=== PATIENT | male | born 1945 | race Caucasian/White ===

== ENCOUNTER 2019-07-24 00:38 | Emergency (ER) | payer BC, MEDICARE ==
[~2019-07-24] VITALS: Ht 172.7 cm; Wt 71.7 kg
--- NOTE | 2019-07-24 00:44 | NUR ---
PT PRESENTED TO THE ER WITH A C/O MIDSTERNAL NON RADIATING CP 30 MINS ECONOMICS DEPARTMENT CHAIR. PT IS PALE, DIAPHORETIC, C/O LUE DISCOMFORT. RESP ARE EVEN AND UNLABORED. PT WAS TRIAGED IN ER 2 AND PLACED ON THE MONITOR AND CONTINUOUS PULSE OX. PT WAS PLACED ON 2L O2 VIA NC PRECAUTION. 18G IV STARTED ON LAC. BLOOD WAS DRAWN AND SENT TO LAB. DR MOORE WAS NOTIFIED AND IS AT THE BEDSIDE.
[2019-07-24 00:56] LABS: BASOPHILS # (AUTO) 0.1 /CMM (0.0-0.2); BASOPHILS % (AUTO) 1.3 % (0.0-2.0); EOSINOPHILS % (AUTO) 1.4 % (0.0-6.0); HEMATOCRIT 41 % (39-51); HEMOGLOBIN 13.8 g/dL (13.5-17.5); LYMPHOCYTES # (AUTO) 2.3 /CMM (0.8-4.8); LYMPHOCYTES % (AUTO) 35.8 % (20.0-44.0); MEAN CORPUSCULAR HGB CONC 34 g/dl (31.0-36.0); MEAN CORPUSCULAR VOLUME 96 fL (80-96); MONOCYTES # (AUTO) 0.7 /CMM (0.1-1.30); MONOCYTES % (AUTO) 11.4 % (2.0-12.0); NEUTROPHILS # (AUTO) 3.2 /CMM (1.8-8.9); NEUTROPHILS % (AUTO) 50.1 % (43.0-81.0); PLATELET COUNT (AUTO) 259 /CMM (150-450); RED BLOOD CELL COUNT(AUTO) 4.23 MIL/uL (4.5-6.0); WHITE BLOOD COUNT (AUTO) 6.4 K/uL (4.3-11.0)
[2019-07-24] MEDS ORDERED: ONDANSETRON HCL/PF 4 MG/2 ML VIAL ONE (00:57)
[2019-07-24] MEDS ORDERED: NITROGLYCERIN 0.4 MG/TAB BOTTLE ONE (00:58)
[2019-07-24] MEDS ORDERED: ASPIRIN 325 MG TABLET ONE (00:58)
--- NOTE | 2019-07-24 00:59 | NUR ---
[place] [facility] fax clinical info [phone] ATT: SOPHIE.
[2019-07-24] MEDS ORDERED: ASPIRIN 325 MG TABLET PO ONE (01:00)
[2019-07-24] MEDS ORDERED: NITROGLYCERIN 0.4 MG/TAB BOTTLE SL ONE (01:00)
[2019-07-24] MEDS ORDERED: MORPHINE SULFATE INJ 2 MG/ML DISP.SYRIN IV ONE (01:00)
[2019-07-24] MEDS ORDERED: ONDANSETRON HCL/PF 4 MG/2 ML VIAL IVP ONE (01:00)
--- NOTE | 2019-07-24 01:00 | NUR ---
1 NITRO 0.4MG SL GIVEN
[2019-07-24 01:01] LABS: CALCIUM, SERUM 8.9 mg/dL (8.5-10.1); CREATININE 1.3 mg/dL (0.6-1.3); POTASSIUM 3.1 mmol/L (3.5-5.1)
[2019-07-24] MEDS ORDERED: MORPHINE SULFATE INJ 2 MG/ML DISP.SYRIN ONE (01:03)
--- NOTE | 2019-07-24 01:03 | NUR ---
PT REFUSED MORPHINE. MED'S WASTED BY RONNELL Harvey RN AND WITNESSED BY MYSELF
--- NOTE | 2019-07-24 01:05 | NUR ---
2ND NITRO 0.4MG SL GIVEN. PT'S PAIN IS 4-5/10 MIDSTERNAL
--- NOTE | 2019-07-24 01:10 | NUR ---
3RD NITRO 0.4MG SL GIVEN PT'S PAIN IS 2/10
[2019-07-24] MEDS ORDERED: HEPARIN INFUSION/D5W 500 ML IV ONE (01:12)
--- NOTE | 2019-07-24 01:15 | NUR ---
Bernice francois in [facility] - 07/24/19 at 0118 by [email or web address] HEPARIN DRIP STARTED AT 4310 UNITS/HR.
--- NOTE | 2019-07-24 01:15 | NUR ---
S/W Keenan at [place], fax received, will c/b for MD to MD consult.
--- NOTE | 2019-07-24 01:15 | NUR ---
HEPARIN BOLUS 4300 UNITS GIVEN IVP BY ROSALVA WONG HEPARIN DRIP TO START AFTER AT 862 UNITS/HR.
[2019-07-24] MEDS ORDERED: HEPARIN SODIUM, PORCINE 5000 UNITS/1 ML VIAL ONE (01:19)
--- NOTE | 2019-07-24 01:22 | NUR ---
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
[2019-07-24] MEDS ORDERED: HEPARIN INFUSION/D5W 500 ML IV PRN (01:30)
[2019-07-24] MEDS ORDERED: POTASSIUM CHLORIDE 20 MEQ TAB.PRT.SR PO ONE (01:30)
[2019-07-24] MEDS ORDERED: HEPARIN SODIUM, PORCINE 5000 UNITS/1 ML VIAL IV ONE (01:30)
--- NOTE | 2019-07-24 01:30 | NUR ---
ADDENDUM: Intravenous End Time Documentation: Heparin Infusion (25,000/D5W 500 ml) start time: 0130 AM end time: 226 AM ; PIV # 18 LAC Port # 1 Heparin drip at 17.24 ml/hour - infusing during transfer at 0227 AM to [facility]
--- NOTE | 2019-07-24 01:30 | NUR ---
PT IS ON THE MONITOR AND CONTINUOUS PULSE OX. PT IS ON 2L O2 VIA NC.
--- NOTE | 2019-07-24 01:31 | NUR ---
Clinical info faxed to [facility] [phone]. Dr. Dougherty on phone w/ Dr. Marquez for consult.
--- NOTE | 2019-07-24 01:44 | NUR ---
ROSALVA Hussein at [place] advised on phone w/ digital traffic coordinator & will c/b. S/W [facility] advised Dr. Dougherty faxing clinical info to digital traffic coordinator & will c/b.
--- NOTE | 2019-07-24 01:46 | NUR ---
Dr. Dougherty accepted at [facility]. [facility] Dispatch called for CCT transport. Engine [id number].
--- NOTE | 2019-07-24 01:49 | NUR ---
REPORT CALLED TO [facility] DEALER DEVELOPMENT MANAGER SARO.
[2019-07-24 02:03] VITALS: BP 101/70
--- NOTE | 2019-07-24 02:07 | NUR ---
RESCUE 102 ARRIVED AND IS TRANSPORTING PT TO [facility] WONG RN IS WITH THE PT. PT IS BEING TRANSPORTED WITH HEPARIN DRIP INFUSING.
--- NOTE | 2019-07-28 01:03 | NUR ---
Note priscila in ED - 07/28/19 at 0125 by [email or web address] PT REFUSED MORPHINE. MED'S WASTED BY RONNELL Harvey RN AND WITNESSED BY MYSELF.
== END 2019-07-24 02:28 ==
LOC: ER 00:41
DX: I21.29 ST elevation (STEMI) myocardial infarction involving other sites (principal)
CPT/HCPCS: 36415; 71045; 80048; 84484; 85025; 85730; 93005 ×2; 96365; 96375; 96376; 99291; 99292; J1644 ×2; J2270; J2405